=== PATIENT | male | born 1955 ===

== ENCOUNTER → 2021-03-20 | Day surgery (SDC) | payer OTHER ==
[~2021-03-20] VITALS: Ht 180.3 cm; Wt 83.9 kg
[~2021-03-20] MED LIST: IRON PO
[2021-03-20 10:34] LABS: HCT 38.4 % (42.0-52.0); HGB 12.9 g/dl (13.2-18.0); MCH 30.9 pg (25.0-31.0); MCHC 33.6 g/dL (32.0-36.0); MCV 92.1 fL (78.0-100.0); MPV 9.4 fL (6.0-9.5); RBC 4.17 M/uL (4.70-6.00); RDW 12.4 % (11.5-14.0); WBC 4.6 K/uL (4.0-10.5)
[2021-03-20 10:52] LABS: ALBUMIN 4.1 g/dL (3.4-5.0); BILIRUBIN - TOTAL 0.3 mg/dL (0.2-1.0); BUN/CREAT RATIO (CALC) 17.7 RATIO; CREATININE 0.79 mg/dL (0.67-1.17); GLOBULIN (CALCULATION) 3.5 g/dL; TOTAL PROTEIN 7.6 g/dL (6.4-8.2)
== END | disposition home or self-care (01) ==
LOC: FAS 09:20
PROVIDERS: Surgery
DX: K62.5 Hemorrhage of anus and rectum (principal); K57.30 Diverticulosis of large intestine without perforation or abscess without bleeding; K64.8 Other hemorrhoids
CPT/HCPCS: 36415; 80053; 84153; J1610; J2370; J7120